=== PATIENT | female | born 1980 | race American Indian/Alaskan Native ===

== ENCOUNTER 2019-09-29 22:43 | Inpatient (IN) | payer OTHER ==
[2019-09-29] MEDS ORDERED: ASPIRIN 325 MG TAB PO ONE (23:53)
[2019-09-30 00:20] LABS: Basophils % (Auto) 0.4 % (0.0-1.8); Eosinophils % (Auto) 0.8 % (0.0-4.3); Hematocrit 26.8 % (30.3-42.9); Hemoglobin 8.2 gm/dl (10.1-14.3); Lymphocytes % (Auto) 33.8 % (13.4-35.0); Mean Corpuscular HGB Conc 30 % (30-34); Monocytes # (Auto) 0.5 K/mm3 (0.0-0.8); Monocytes % (Auto) 7.8 % (0.0-7.3); Platelet Count 347 K/mm3 (140-440); Red Blood Count 4.05 M/mm3 (3.65-5.03); Red Cell Distribution Width 17.9 % (13.2-15.2)
[2019-09-30 00:35] LABS: Mean Corpuscular Volume 66 fl (79-97)
[2019-09-30 00:37] LABS: BUN/Creatinine Ratio 18; Blood Urea Nitrogen 16 mg/dL (7-17); Calcium 9.1 mg/dL (8.4-10.2); Hemolysis Index 0
--- NOTE | 2019-09-30 03:21 | XRay Report ---
CHEST 1 VIEW 2:56 AM INDICATION / CLINICAL INFORMATION: Chest and neck pain for one day. COMPARISON: None available. FINDINGS: SUPPORT DEVICES: None. HEART / MEDIASTINUM: The heart size and pulmonary vasculature are normal. The aorta is normal in evelina jean. LUNGS / PLEURA: No significant pulmonary or pleural abnormality. Incidental note is made of an azygos fissure. No pneumothorax. ADDITIONAL FINDINGS: No significant additional findings. IMPRESSION: No acute findings. Signer Name: Srinivasan Moore MD Signed: 09/30/2019 3:16 AM Workstation Name: [id number]
--- NOTE | 2019-09-30 06:09 | Emergency Department Report ---
ED Chest Pain HPI - General Chief Complaint: Chest Pain Stated Complaint: LEFT SIDE PAIN AND NUMBNESS,CHEST PAIN Time Seen by Provider: 09/30/19 06:07 Source: patient Mode of arrival: Ambulatory Limitations: No Limitations - History of Present Illness Initial Comments: This is a 39-year-old female who states he has never been to the emergency department or physician for headache or chest pain in the past.She has no history of hypertension. Yesterday at about 9 she developed chest pain which was dull and nonradiating. It involve the left anterior chest. It was not pleuritic. He does not complain of shortness of breath. She denies cough. She denies any focal neurological change. She states that her chief complaint was actually headache and left-sided neck pain. Patient denies any ongoing medical problems history of hospitalization. MD Complaint: chest pain -: Gradual, days(s) (yesterday morning) Onset: during rest Pain Location: left chest Pain Radiation: none Severity scale (0 -10): 5 Quality: dull Consistency: intermittent Improves With: nothing Worsens With: nothing re: nausea Other Symptoms: denies: cough, fever, syncope Treatments Prior to Arrival: none Aspirin use within the Past 7 Days: (0) No - Related Data Allergies Allergy/AdvReac Type Severity Reaction Status Date / Time No Known Allergies Allergy Unverified 09/29/19 23:53 Heart Score - HEART Score History: Slightly suspicious EKG: Normal Age: < 45 Risk factors: No known risk factors Troponin: < normal limit HEART Score: 0 - Critical Actions Critical Actions: 0-3 pts:0.9-1.7%risk of adverse cardiac event.Candidate for discharge ED Review of Systems ROS: Stated complaint: LEFT SIDE PAIN AND NUMBNESS,CHEST PAIN Other details as noted in HPI Constitutional: denies: chills, fever Eyes: denies: eye pain, eye discharge, vision change ENT: denies: ear pain, throat pain Respiratory: denies: cough, shortness of breath, wheezing Cardiovascular: chest pain. denies: palpitations Endocrine: no symptoms reported Gastrointestinal: nausea. denies: abdominal pain, diarrhea Genitourinary: denies: urgency, dysuria, discharge Musculoskeletal: denies: back pain, joint swelling, arthralgia Skin: denies: rash, lesions Neurological: denies: headache, weakness, paresthesias Psychiatric: denies: anxiety, depression Hematological/Lymphatic: denies: easy bleeding, easy bruising ED Past Medical Hx - Past Medical History Previous Medical History?: No - Surgical History Past Surgical History?: Yes Additional Surgical History: - Social History Smoking Status: Never Smoker Substance Use Type: None ED Physical Exam - General Limitations: No Limitations General appearance: alert, in no apparent distress - Head Head exam: Present: atraumatic, normocephalic - Eye Eye exam: Present: normal appearance. Absent: scleral icterus - ENT ENT exam: Present: mucous membranes moist - Neck Neck exam: Present: normal inspection, tenderness (some tenderness left side of the neck.). Absent: meningismus - Respiratory Respiratory exam: Present: normal lung sounds bilaterally. Absent: respiratory distress - Cardiovascular Cardiovascular Exam: Present: regular rate, normal rhythm. Absent: systolic murmur, diastolic murmur, rubs, gallop - GI/Abdominal GI/Abdominal exam: Present: soft, normal bowel sounds. Absent: distended, tenderness, guarding, rebound - Extremities Exam Extremities exam: Present: normal inspection, full ROM, normal capillary refill. Absent: tenderness, pedal edema, joint swelling, calf tenderness - Back Exam Back exam: Present: normal inspection - Neurological Exam Neurological exam: Present: alert, oriented X3, CN II-XII intact. Absent: motor sensory deficit - Psychiatric Psychiatric exam: Present: normal affect, normal mood - Skin Skin exam: Present: warm, dry, intact, normal color. Absent: rash ED Course Vital Signs 09/29/19 09/30/19 09/30/19 23:37 06:05 07:15 Temperature 97.8 F Pulse Rate 91 H 70 88 Respiratory 18 14 Rate Blood Pressure 147/100 156/106 Blood Pressure 182/90 [Left] O2 Sat by Pulse 100 99 Oximetry 09/30/19 09/30/19 07:51 08:52 Temperature Pulse Rate 71 79 Respiratory 16 Rate Blood Pressure Blood Pressure 149/101 141/91 [Left] O2 Sat by Pulse Oximetry - Reevaluation(s) Reevaluation #1: Patient did not complain of chest pain. She complained of persistent tenderness of the left neck. She did not have meningismus or nuchal rigidity. She seemed to have some muscle spasm of the left trapezius group and neck muscles and some localized tenderness. She was found to be anemic. A cardiac workup was negative. CT of the head was negative. Initial blood pressure was 180/120. She was given labetalol. Blood pressure is improved to 140/90. In consideration of a broader differential diagnosis, I have ordered a d-dimer, CRP, ESR, hepatic panel and a CTA. Discussed with Dr. LYNN and admitted to his service. 09/30/19 09:06 JOSHUA score - Joshua Score Age > 65: (0) No Aspirin use within the Past 7 Days: (0) No 3 or more CAD Risk Factors: (0) No 2 or more Angina events in past 24 hrs: (0) No Known CAD with more than 50% Stenosis: (0) No Elevated Cardiac Markers: (0) No ST Deviation Greater than 0.5mm: (0) No JOSHUA Score: 0 ED Medical Decision Making - Lab Data Result diagrams: 09/29/19 23:54 09/29/19 23:54 Laboratory Results - last 24 hr 09/29/19 09/29/19 09/30/19 23:54 23:54 03:02 WBC 5.8 RBC 4.05 Hgb 8.2 L Hct 26.8 L MCV 66 L MCH 20 L MCHC 30 RDW 17.9 H Plt Count 347 Lymph % (Auto) 33.8 [place] % (Auto) 7.8 H Eos % (Auto) 0.8 Baso % (Auto) 0.4 Lymph # 2.0 [place] # 0.5 Eos # 0.0 Baso # 0.0 Seg Neutrophils % 57.2 Seg Neutrophils # 3.3 Sodium 143 Potassium 4.0 Chloride 105.3 Carbon Dioxide 26 Anion Gap 16 BUN 16 Creatinine 0.9 Estimated GFR > 60 BUN/Creatinine Ratio 18 Glucose 86 Calcium 9.1 Troponin T < 0.010 < 0.010 - EKG Data -: EKG Interpreted by Sc EKG shows normal: sinus rhythm, axis, intervals, QRS complexes, ST-T waves Rate: normal - EKG Data Interpretation: no acute changes - Radiology Data Radiology results: report reviewed (NAF) Chest x-ray and CT of the head no acute process Critical care attestation.: If time is entered above; I have spent that time in minutes in the direct care of this critically ill patient, excluding procedure time. ED Disposition Clinical Impression: Uncontrolled hypertension Cephalalgia Qualifiers: Headache type: unspecified Headache chronicity pattern: acute headache Intractability: not intractable Qualified Code(s): R51 - Headache Chest pain Qualifiers: Chest pain type: unspecified Qualified Code(s): R07.9 - Chest pain, unspecified Anemia Qualifiers: Anemia type: iron deficiency Iron deficiency anemia type: unspecified iron deficiency Qualified Code(s): D50.9 - Iron deficiency anemia, unspecified Disposition: 09 OP ADMIT IP TO THIS HOSP Is pt being admited?: Yes Does the pt Need Aspirin: Yes Condition: Stable Instructions: Hypertension (ED), Chest Pain (ED) Time of Disposition: 09:10
[2019-09-30] MEDS ORDERED: MORPHINE 2 MG/1 ML INJ IV ONE (06:27)
[2019-09-30] MEDS ORDERED: ONDANSETRON 4 MG/2 ML INJ IV ONE ×2 (06:27→09:11)
--- NOTE | 2019-09-30 07:03 | Cat Scan Report ---
CT HEAD/BRAIN WO CON INDICATION / CLINICAL INFORMATION: Headache with nausea and dizziness. TECHNIQUE: All CT scans at this location are performed using CT dose reduction for ALARA by means of automated e xposure control. COMPARISON: None available. FINDINGS: The ventricular system is normal in size and configuration. There are mild patchy small vessel ischem ic changes in the periventricular white matter bilaterally. No focal lesion or mass effect is seen. T here is no evidence of intracranial hemorrhage or major vessel occlusion. The calvarium is intact. The visualized paranasal sinuses and mastoid air cells are clear. IMPRESSION: No acute abnormality. Signer Name: Srinivasan Moore MD Signed: 09/30/2019 6:58 AM Workstation Name: [id number]
[2019-09-30] MEDS ORDERED: diphenhydrAMINE 50 MG/ML VIAL ONE (07:23)
[2019-09-30] MEDS ORDERED: diphenhydrAMINE 50 MG/ML VIAL IV ONE (07:38)
[2019-09-30] MEDS ORDERED: HYDROmorphone 1 MG/1 ML INJ IV ONE (09:11)
[2019-09-30] MEDS ORDERED: MORPHINE 2 MG/1 ML INJ IV PRN (09:15)
[2019-09-30] MEDS ORDERED: ALBUTEROL 2.5 MG/3 ML NEBU IH PRN (09:15)
[2019-09-30] MEDS ORDERED: NALOXONE 0.4 MG/1 ML INJ IV PRN (09:15)
[2019-09-30] MEDS ORDERED: ACETAMINOPHEN 325 MG TAB PO PRN (09:15)
[2019-09-30] MEDS ORDERED: NITROGLYCERIN 0.4 MG TAB SUBL SL PRN (09:15)
[2019-09-30] MEDS ORDERED: SUMAtriptan SUCCINATE 25 MG TAB PO PRN (09:19)
--- NOTE | 2019-09-30 09:27 | History and Physical Report ---
History of Present Illness Date of examination: 09/30/19 Date of admission: 09/30/19 Chief complaint: CHEST PAIN, NAUSEA WITH VOMITING, HEADAHCE History of present illness: Patient is a 39-year-old female with past medical history of x4 no other medical condition who presents to the ED with complaints of pressure-like chest pain that started suddenly 2 days prior to presentation nonradiating no aggravating or alleviating factor followed by headache that started on the day before ED presentation rated 6/10 in intensity with associated photophobia phonophobia and left sided neck tenderness. She also reports paresthesia to the left fingertips. Shortly after that she began to have nausea vomiting with no diarrhea and no abdominal discomfort. She reports multiple episodes of vomiting nonbloody nonbilious. She denies prior history of the same. She denies any drug use. During my evaluation patient continues to have nausea with vomiting and appears uncomfortable she denies any fever or syncopal episode. Past History Past Medical History: other Past Surgical History: (X4) Social history: full code. denies: smoking, alcohol abuse, prescription drug abuse, IV drug use Family history: no significant family history Medications and Allergies Allergies Allergy/AdvReac Type Severity Reaction Status Date / Time morphine Allergy Hives Verified 09/30/19 09:44 Home Medications Medication Instructions Recorded Confirmed Last Taken Type No Known Home Medications [No 09/30/19 09/30/19 Unknown History Reported Home Medications] Review of Systems All systems: negative Cardiovascular: chest pain Gastrointestinal: nausea, vomiting Neurological: parathesias, numbness, tingling, headaches Exam - Physical Exam Narrative exam: VITAL SIGNS: Reviewed. GENERAL: The patient appears normally developed, ill-appearing. Uncomfortable appearing. Vital signs as documented. HEAD: No signs of head trauma. EYES: Pupils are equal. Extraocular motions intact. EARS: Hearing grossly intact. MOUTH: Oropharynx is normal. NECK: No adenopathy, no JVD. CHEST: Chest with clear breath sounds bilaterally. No wheezes, rales, or rhonchi. CARDIAC: Regular rate and rhythm. S1 and S2, without murmurs, gallops, or rubs. VASCULAR: No Edema. Peripheral pulses normal and equal in all extremities. ABDOMEN: Soft, non tender and non distended. No rebound or guarding, and no masses palpated. Bowel Sounds normal. MUSCULOSKELETAL: Good range of motion of all major joints. Extremities without clubbing, cyanosis or edema. NEUROLOGIC EXAM: Alert and oriented x 3 No focal sensory or strength deficits. Speech normal. Follows commands. PSYCHIATRIC: Mood normal. SKIN: detial exam as documented in skin assessment - Constitutional Vitals: Temp Pulse Resp BP Pulse Ox 97.8 F 79 16 141/91 99 09/29/19 23:37 09/30/19 08:52 09/30/19 08:52 09/30/19 08:52 09/30/19 06:05 Results - Labs CBC & Chem 7: 09/30/19 08:58 09/30/19 08:58 Labs: Laboratory Last Values WBC 5.8 K/mm3 (4.5-11.0) 09/29/19 23:54 RBC 4.05 M/mm3 (3.65-5.03) 09/29/19 23:54 Hgb 8.2 gm/dl (10.1-14.3) L 09/29/19 23:54 Hct 26.8 % (30.3-42.9) L 09/29/19 23:54 MCV 66 fl (79-97) L 09/29/19 23:54 MCH 20 pg (28-32) L 09/29/19 23:54 MCHC 30 % (30-34) 09/29/19 23:54 RDW 17.9 % (13.2-15.2) H 09/29/19 23:54 Plt Count 347 K/mm3 (140-440) 09/29/19 23:54 Lymph % (Auto) 33.8 % (13.4-35.0) 09/29/19 23:54 [place] % (Auto) 7.8 % (0.0-7.3) H 09/29/19 23:54 Eos % (Auto) 0.8 % (0.0-4.3) 09/29/19 23:54 Baso % (Auto) 0.4 % (0.0-1.8) 09/29/19 23:54 Lymph # 2.0 K/mm3 (1.2-5.4) 09/29/19 23:54 [place] # 0.5 K/mm3 (0.0-0.8) 09/29/19 23:54 Eos # 0.0 K/mm3 (0.0-0.4) 09/29/19 23:54 Baso # 0.0 K/mm3 (0.0-0.1) 09/29/19 23:54 Seg Neutrophils % 57.2 % (40.0-70.0) 09/29/19 23:54 Seg Neutrophils # 3.3 K/mm3 (1.8-7.7) 09/29/19 23:54 Sodium 143 mmol/L (137-145) 09/29/19 23:54 Potassium 4.0 mmol/L (3.6-5.0) 09/29/19 23:54 Chloride 105.3 mmol/L (98-107) 09/29/19 23:54 Carbon Dioxide 26 mmol/L (22-30) 09/29/19 23:54 Anion Gap 16 mmol/L 09/29/19 23:54 BUN 16 mg/dL (7-17) 09/29/19 23:54 Creatinine 0.9 mg/dL (0.7-1.2) 09/29/19 23:54 Estimated GFR > 60 ml/min 09/29/19 23:54 BUN/Creatinine Ratio 18 % 09/29/19 23:54 Glucose 86 mg/dL (65-100) 09/29/19 23:54 Calcium 9.1 mg/dL (8.4-10.2) 09/29/19 23:54 Troponin T < 0.010 ng/mL (0.00-0.029) 09/30/19 03:02 HCG, Qual Negative (Negative) 09/29/19 23:54 Assessment and Plan Assessment and plan: Patient is a 39-year-old female with past medical history of x4 no other medical condition who presents to the ED with complaints of pressure-like chest pain that started suddenly 2 days prior to presentation nonradiating no a ggravating or alleviating factor followed by headache that started on the day before ED presentation rated 6/10 in intensity with associated photophobia phonophobia and left sided neck tenderness. She also reports paresthesia to the left fingertips. Shortly after that she began to have nausea vomiting with no diarrhea and no abdominal discomfort. She reports multiple episodes of vomiting nonbloody nonbilious. She denies prior history of the same. She denies any drug use. During my evaluation patient continues to have nausea with vomiting and appears uncomfortable she denies any fever or syncopal episode. Imaging studies Chest x-ray, CTA head and neck, CTA neck: All negative with no acute pathology noted Atypical Chest pain x 2 days- pressure sensation, sudden onset, at rest Severe Frontal Headache with Blurry vision 24 hrs after the onset of chest pain Left sided neck pain and stillness associated with left upper ext parasthesia along with the headache Photo/Phonophobia Hypertensive Urgency in ED with systolic >180 Persistent Nausea and vomiting associated with the headache x4 No family or personal hx of CAD No Tobacco use Sparing use of ETOH PLAN Admit for management of possible Migraine headache Timing and Nature of Chest pain, is a little concerning, will get Cardiology eval and Echo Nitro, ASA, Statin, HCTZ, Verapamil, (Sumatriptonphan, Zofran and Morphin PRN) UDS, Lipid panel, TSH, Troponin and CPk/MB levels Neurochecks Follow pending radiology studies DVT/GI prophy Anticipate discharge in am Plan discussed with patient. Advance Directives: Yes Plan of care discussed with patient/family: Yes
[2019-09-30 09:55] LABS: INR 0.99 (0.87-1.13)
[2019-09-30 09:56] LABS: Partial Thromboplastin Time 26.7 Sec. (24.2-36.6)
[2019-09-30 10:01] LABS: Alanine Aminotransferase 9 units/L (7-56); Albumin 4.4 g/dL (3.9-5)
[2019-09-30 10:04] LABS: Basophils % (Auto) 0.9 % (0.0-1.8); Eosinophils # (Auto) 0.1 K/mm3 (0.0-0.4); Eosinophils % (Auto) 1.6 % (0.0-4.3); Hematocrit 29.4 % (30.3-42.9); Hemoglobin 8.9 gm/dl (10.1-14.3); Lymphocytes # (Auto) 1.9 K/mm3 (1.2-5.4); Lymphocytes % (Auto) 39.9 % (13.4-35.0); Mean Corpuscular HGB Conc 30 % (30-34); Monocytes # (Auto) 0.2 K/mm3 (0.0-0.8); Monocytes % (Auto) 4.3 % (0.0-7.3); Platelet Count 380 K/mm3 (140-440); Red Blood Count 4.52 M/mm3 (3.65-5.03); Red Cell Distribution Width 17.4 % (13.2-15.2)
[2019-09-30 10:07] LABS: Bilirubin,Direct < 0.2 mg/dL (0-0.2); Mean Corpuscular Volume 65 fl (79-97)
[2019-09-30 10:17] LABS: BUN/Creatinine Ratio 16; Blood Urea Nitrogen 13 mg/dL (7-17); Calcium 9.2 mg/dL (8.4-10.2); Chol/HDL Ratio 2.81 %; HDL Cholesterol 76 mg/dL (40-59); Hemolysis Index 10; LDL Cholesterol,Direct 140 mg/dL (50-130)
[2019-09-30] MEDS: hydroCHLOROthiazide 25 MG TAB PO SCH (10:35)
[2019-09-30] MEDS: FAMOTIDINE 20 MG/2 ML INJ IV SCH ×2 (10:35→21:55)
[2019-09-30] MEDS: CYCLOBENZAPRINE 10 MG TAB PO PRN (10:36)
[2019-09-30] MEDS ORDERED: METOCLOPRAMIDE 10 MG/2 ML INJ IV ONE (11:07)
--- NOTE | 2019-09-30 11:13 | Cat Scan Report ---
CT angio head INDICATION / CLINICAL INFORMATION: 39 years Female; head and neck pain, HTN. TECHNIQUE: Thin cut axial images obtained through the head during IV bolus contrast administration. S agittal, coronal, and 3 plane MIP reconstructions performed by the technologist. NASCET type criteria used evaluate stenoses. Automated exposure control utilized for radiation reduction purposes. COMPARISON: None available. FINDINGS: INTERNAL CAROTID ARTERIES: No significant narrowing appreciated. VERTEBROBASILAR SYSTEM: No significant narrowing appreciated. DISTAL BRANCHES: Distal branches of the anterior, middle, and posterior cerebral arteries are fairly symmetric in appearance and number. ANEURYSM: None identified. ADDITIONAL FINDINGS: Remainder of the surrounding soft tissues are grossly normal. IMPRESSION: No significant narrowing appreciated on this CTA of the head. Signer Name: Richmond Benavidez MD, III Signed: 09/30/2019 11:09 AM Workstation Name: [id number]
[2019-09-30 11:17] LABS: Erythrocyte Sedimentation Rate 46 mm/Hr (0-20)
--- NOTE | 2019-09-30 11:24 | Cat Scan Report ---
CT angio neck INDICATION / CLINICAL INFORMATION: 39 years Female; head and neck pain, HTN. TECHNIQUE: Thin cut axial images obtained through the head during IV bolus contrast administration. S agittal, coronal, and 3 plane MIP reconstructions performed by the technologist. NASCET type criteria used evaluate stenoses. All CT scans at this location are performed using CT dose reduction for ALAR A by means of automated exposure control. COMPARISON: None available. FINDINGS: ARCH: Normal aortic arch branching suggested. CAROTID ARTERIES: The visualized common and internal carotid arteries are widely patent. VERTEBRAL ARTERIES: Codominant vertebral system seen. No significant stenosis appreciated. Note, ther e is a very small segment of the proximal left vertebral artery, just distal to its origin, which is not well visualized because of streak artifact from dense contrast in the adjacent venous structures. ADDITIONAL FINDINGS: Remainder of the surrounding soft tissues are grossly normal. IMPRESSION: No significant stenosis appreciated on this CTA of the neck. Signer Name: Richmond Benavidez MD, III Signed: 09/30/2019 11:20 AM Workstation Name: [id number]
[2019-09-30] MEDS: D5W/0.9% NACL 1,000 ML IV SCH ×2 (14:08→22:25)
[2019-09-30] MEDS: ONDANSETRON 4 MG/2 ML INJ IV PRN ×3 (14:16→22:27)
[2019-09-30] MEDS: HYDROmorphone 1 MG/1 ML INJ IV PRN ×3 (14:17→21:56)
--- NOTE | 2019-09-30 14:30 | XRay Report ---
ABDOMEN 1 VIEW(S) INDICATION / CLINICAL INFORMATION: nausea and vomiting. COMPARISON: None available. FINDINGS: TUBES / LINES: None. BOWEL GAS PATTERN: No significant abnormality. FREE AIR / EXTRALUMINAL GAS: None seen. ADDITIONAL FINDINGS: Contrast is noted within the bladder and both renal collecting systems. IMPRESSION: 1. No significant abnormality. Signer Name: Rubén Angeles MD Signed: 09/30/2019 2:26 PM Workstation Name: [id number]
[2019-09-30] MEDS: VERAPAMIL 80 MG TAB PO SCH ×2 (14:45→22:30)
[2019-09-30 15:20] LABS: Creatine Kinase MB < 1.0 ng/mL (0.0-4.0)
[2019-09-30] MEDS ORDERED: ENOXAPARIN 40 MG/0.4 ML INJ SUB-Q NR (17:03)
[2019-09-30] MEDS: diphenhydrAMINE 25 MG CAP PO PRN ×2 (17:24→23:52)
--- NOTE | 2019-09-30 17:37 | Progress Note ---
Subjective Date of service: 09/30/19 Interval history: review of the CT of head is normal and the CTA of brain normal to my review remainder of work up pending ie ECHO Objective - Vital Sign Vital Signs - 12hr 09/30/19 09/30/19 09/30/19 06:05 07:15 07:51 Temperature Pulse Rate 70 88 71 Respiratory 14 Rate Blood Pressure 156/106 Blood Pressure 182/90 149/101 [Left] O2 Sat by Pulse 99 Oximetry 09/30/19 09/30/19 09/30/19 08:52 11:16 13:29 Temperature 98.3 F Pulse Rate 79 67 Respiratory 16 20 Rate Blood Pressure 144/90 Blood Pressure 141/91 163/107 [Left] O2 Sat by Pulse 98 99 Oximetry 09/30/19 09/30/19 14:33 14:45 Temperature Pulse Rate 67 Respiratory Rate Blood Pressure 140/90 Blood Pressure [Left] O2 Sat by Pulse 98 Oximetry - Laboratory Findings CBC and BMP: 09/30/19 08:58 09/30/19 08:58 Abnormal Lab Findings: Abnormal Labs 09/29/19 09/30/19 09/30/19 23:54 08:58 08:58 Hgb 8.2 L 8.9 L Hct 26.8 L 29.4 L MCV 66 L 65 L MCH 20 L 20 L RDW 17.9 H 17.4 H Lymph % (Auto) 39.9 H [place] % (Auto) 7.8 H D-Dimer 244.14 H Carbon Dioxide Cholesterol LDL Cholesterol Direct HDL Cholesterol 09/30/19 08:58 Hgb Hct MCV MCH RDW Lymph % (Auto) [place] % (Auto) D-Dimer Carbon Dioxide 18 L D Cholesterol 214 H LDL Cholesterol Direct 140 H HDL Cholesterol 76 H
[2019-09-30 18:21] LABS: Creatine Kinase MB < 1.0 ng/mL (0.0-4.0)
[2019-10-01] MEDS ORDERED: hydrALAZINE 20 MG/1 ML INJ IV PRN (02:00)
[2019-10-01] MEDS: PROMETHAZINE 12.5 MG/10 ML ORAL LIQD PO SCH ×2 (02:03→08:46)
[2019-10-01] MEDS: HYDROmorphone 1 MG/1 ML INJ IV PRN ×4 (03:04→21:39)
[2019-10-01] MEDS: VERAPAMIL 80 MG TAB PO SCH ×3 (05:33→21:40)
--- NOTE | 2019-10-01 08:16 | Progress Note ---
Subjective Date of service: 10/01/19 Interval history: neuro exam is normal suspect STEVE and HTN cuase of problem full note dictated Objective - Vital Sign Vital Signs - 12hr 09/30/19 09/30/19 10/01/19 22:30 22:56 00:02 Temperature 97.7 F Pulse Rate 104 H 74 68 Respiratory 18 Rate Blood Pressure 185/119 171/89 Blood Pressure 167/110 [Left] O2 Sat by Pulse 99 Oximetry 10/01/19 10/01/19 10/01/19 00:50 01:32 04:10 Temperature 97.4 F L 97.5 F L Pulse Rate 68 89 74 Respiratory 18 20 Rate Blood Pressure 167/110 171/92 Blood Pressure 169/104 [Left] O2 Sat by Pulse 100 100 Oximetry 10/01/19 05:33 Temperature Pulse Rate 95 H Respiratory Rate Blood Pressure 151/101 Blood Pressure [Left] O2 Sat by Pulse Oximetry - Laboratory Findings CBC and BMP: 09/30/19 08:58 09/30/19 08:58 Abnormal Lab Findings: Abnormal Labs 09/29/19 09/30/19 09/30/19 23:54 08:58 08:58 Hgb 8.2 L 8.9 L Hct 26.8 L 29.4 L MCV 66 L 65 L MCH 20 L 20 L RDW 17.9 H 17.4 H Lymph % (Auto) 39.9 H [place] % (Auto) 7.8 H D-Dimer 244.14 H Carbon Dioxide Cholesterol LDL Cholesterol Direct HDL Cholesterol 09/30/19 08:58 Hgb Hct MCV MCH RDW Lymph % (Auto) [place] % (Auto) D-Dimer Carbon Dioxide 18 L D Cholesterol 214 H LDL Cholesterol Direct 140 H HDL Cholesterol 76 H
--- NOTE | 2019-10-01 08:28 | Consultation ---
HISTORY OF PRESENT ILLNESS: A 39-year-old black female who presents to [facility] with prolonged chest pain, dizziness, vertigo, left and right arm weakness. On presentation, she had a MCV, which was 66 and 65 and a low hematocrit of 26. D-dimer test was high at 244. The patient complained of pain in her arms and legs. I reviewed her CT scan of the head or CTA, it is normal. ALLERGIES: THE PATIENT HAS ALLERGIES TO MORPHINE. PHYSICAL EXAMINATION: VITAL SIGNS: On current evaluation, her vital signs, blood pressure is 167/110. NEUROLOGIC: Cranial nerves II through XII are intact. She has a slight ptosis of the left pupil. It is extremely minimal. She has equal clinical informatics director. Normal tone. No asymmetrical movements. Cranial nerves 2-12 are intact. No tremors or asterixis. PSYCHIATRIC: Normal affect. Normal behavior. Memory is good. There are no tremors. No seizure activity. IMPRESSION: Neurological symptoms associated as described above. I suspect this is due to iron deficiency anemia. I also think there may be a component of hypertension as well. The patient has elevated cholesterol and HDL. Recommendations are iron supplementation. Further review of anemia such as I would obviously check the iron levels, ferritin, and check for possibility of some bleeding, but generally this is due to factors involving the patient's periods, controlled hypertension is noted. JOB# [id number] SANDHYA/NTS
[2019-10-01] MEDS ORDERED: cloNIDine TTS 0.1 MG/24 HR PATCH TD SCH (10:00)
--- NOTE | 2019-10-01 11:05 | Gastroenterology Consultation ---
<JOSUÉ SCHWAB - Last Filed: 10/01/19 11:26> History of Present Illness - Reason for Consult Consult date: 10/01/19 N/V Requesting physician: CHRIS LYNN - History of Present Illness Patient is a 39 y/o female with PMH of x 4, headaches, and chronic anemia who presented to ED with c/o atypical CP and headache with associated ph otophobia, phonophobia, left sided neck tenderness, parestesia to left fingertips, and N/V (nonbloody emesis) to which GI has been consulted. Upon admission, she was found to be hypertensive with head CT/neck CTA negative. Neurology following. This morning patient was resting in bed w/o acute distress. Reports continued headache and vomiting x 2 episodes this am. States CP is now resolved. Denies fever, SOB, wt loss, abd pain, hematemesis, melena, diarrhea, constipation, or hematochezia. Has had nausea for the past few months w/o vomiting. Symptoms not correlated with PO intake. Has a hx of chronic anemia with having to take iron supplements in the past but no hx of GI bleeding or PUD. Admits to heavy NSAID use with taking Goody's powder on average of twice daily for headaches or menstrual symptoms (+ menorrhagia). No prior EGD or colonoscopy. Past History Past Medical History: anemia, other (headaches) Past Surgical History: (X4) Social history: full code. denies: smoking, alcohol abuse, prescription drug abuse, IV drug use Family history: no significant family history Medications and Allergies Allergies Allergy/AdvReac Type Severity Reaction Status Date / Time morphine Allergy Hives Verified 09/30/19 09:44 Home Medications Medication Instructions Recorded Confirmed Last Taken Type No Known Home Medications [No 09/30/19 09/30/19 Unknown History Reported Home Medications] Active Meds: Active Medications Acetaminophen (Tylenol) 650 mg PO Q4H PRN PRN Reason: Pain MILD(1-3)/Fever >100.5/CARVAJAL Albuterol (Proventil) 2.5 mg IH Q3HRT PRN PRN Reason: Shortness Of Breath Aspirin (Baby Aspirin) 81 mg PO QDAY [facility] Atorvastatin Calcium (Lipitor) 20 mg PO QHS [facility] Last Admin: 09/30/19 21:56 Dose: 20 mg Documented by: Clonidine HCl (Catapres-Tts Patch) 0.1 mg TD Mo@1000 [facility] Cyclobenzaprine HCl (Flexeril) 5 mg PO Q8H PRN PRN Reason: Muscle Spasm Last Admin: 09/30/19 10:36 Dose: 5 mg Documented by: Diphenhydramine HCl (Benadryl) 25 mg PO Q6H PRN PRN Reason: Itching Last Admin: 09/30/19 23:52 Dose: 25 mg Documented by: Famotidine (Pepcid) 20 mg IV BID [facility] Last Admin: 09/30/19 21:55 Dose: 20 mg Documented by: Hydralazine HCl (Apresoline) 10 mg IV Q4H PRN PRN Reason: hypertension Last Admin: 10/01/19 00:50 Dose: 10 mg Documented by: Hydrochlorothiazide (Hctz) 25 mg PO QDAY [facility] Last Admin: 09/30/19 10:35 Dose: 25 mg Documented by: Hydromorphone HCl (Dilaudid) 0.5 mg IV Q3H PRN PRN Reason: Pain , Severe (7-10) Last Admin: 10/01/19 08:46 Dose: 0.5 mg Documented by: Dextrose/Sodium Chloride (D5ns) 1,000 mls @ 42 mls/hr IV DIRECT [facility] Last Admin: 09/30/19 22:25 Dose: 100 mls/hr Documented by: Naloxone HCl (Naloxone) 0.1 mg IV Q2MIN PRN PRN Reason: Res Rate </= 8 or 02 SAT < 92% Nitroglycerin (Nitrostat) 0.4 mg SL Q5M PRN PRN Reason: Chest Pain Ondansetron HCl (Zofran) 4 mg IV Q4H PRN PRN Reason: Nausea And Vomiting Last Admin: 09/30/19 22:27 Dose: 4 mg Documented by: Sodium Chloride (Sodium Chloride Flush Syringe 10 Ml) 10 ml IV BID [facility] Last Admin: 09/30/19 21:58 Dose: 10 ml Documented by: Sodium Chloride (Sodium Chloride Flush Syringe 10 Ml) 10 ml IV PRN PRN PRN Reason: LINE FLUSH Sodium Chloride (Sodium Chloride Flush Syringe 10 Ml) 10 ml IV PRN PRN PRN Reason: LINE FLUSH Sumatriptan Succinate (Imitrex) 25 mg PO Q2H PRN PRN Reason: Headache Verapamil HCl (Calan) 40 mg PO Q8HR [facility] Last Admin: 10/01/19 05:33 Dose: 40 mg Documented by: medications reviewed/updated as required Review of Systems - Review of Systems All systems: negative Constitutional: other (headache) Gastrointestinal: nausea, vomiting Exam - Constitutional Vital Signs: Temp Pulse Resp BP Pulse Ox 97.5 F L 95 H 20 151/101 100 10/01/19 04:10 10/01/19 05:33 10/01/19 04:10 10/01/19 05:33 10/01/19 04:10 General appearance: no acute distress - EENT Eyes: PERRL, EOM intact ENT: hearing intact - Respiratory Respiratory effort: normal - Cardiovascular Rhythm: regular - Gastrointestinal General gastrointestinal: Present: soft, non-tender, non-distended, normal bowel sounds - Integumentary Integumentary: Present: warm, dry - Neurologic Neurological: alert and oriented x3 - Labs CBC & Chem 7: 10/01/19 10:47 09/30/19 08:58 Lab Results: Laboratory Results - last 24 hr 09/30/19 09/30/19 09/30/19 08:58 14:36 14:36 ESR 46 Total Creatine Kinase 86 CK-MB (CK-2) < 1.0 CK-MB (CK-2) Rel Index 1.1 Troponin T < 0.010 09/30/19 17:10 ESR Total Creatine Kinase 86 CK-MB (CK-2) < 1.0 CK-MB (CK-2) Rel Index 1.1 Troponin T Assessment and Plan 1.N/V 2.atypical CP-resolved; troponin negative/echo EF 50-55% 3.chronic anemia- +menorrhagia -afebrile -WBC WNL -INR and plt WNL -H/H 8.8/28.4-stable; no active signs of bleeding -LFTs WNL -etiology unclear- possibly related to headache vs PUD (+heavy NSAID use) vs GB vs other -will order abd U/S and schedule for EGD today for further evaluation to r/o GI pathology -Keep NPO -start on PPI -continue supportive care -recommend patient be seen by [facility] for menorrhagia which could likely be contributing to chronic anemia; consider colonoscopy as outpatient for further workup of anemia if recommended per [facility] -will follow <JIN MARIE R - Last Filed: 10/01/19 15:05> Medications and Allergies Active Meds: Active Medications Acetaminophen (Tylenol) 650 mg PO Q4H PRN PRN Reason: Pain MILD(1-3)/Fever >100.5/CARVAJAL Albuterol (Proventil) 2.5 mg IH Q3HRT PRN PRN Reason: Shortness Of Breath Aspirin (Baby Aspirin) 81 mg PO QDAY [facility] Atorvastatin Calcium (Lipitor) 20 mg PO QHS [facility] Last Admin: 09/30/19 21:56 Dose: 20 mg Documented by: Clonidine HCl (Catapres-Tts Patch) 0.1 mg TD Mo@1000 [facility] Last Admin: 10/01/19 12:30 Dose: 0.1 mg Documented by: Cyclobenzaprine HCl (Flexeril) 5 mg PO Q8H PRN PRN Reason: Muscle Spasm Last Admin: 09/30/19 10:36 Dose: 5 mg Documented by: Diphenhydramine HCl (Benadryl) 25 mg PO Q6H PRN PRN Reason: Itching Last Admin: 09/30/19 23:52 Dose: 25 mg Documented by: Hydralazine HCl (Apresoline) 10 mg IV Q4H PRN PRN Reason: hypertension Last Admin: 10/01/19 00:50 Dose: 10 mg Documented by: Hydrochlorothiazide (Hctz) 25 mg PO QDAY [facility] Last Admin: 09/30/19 10:35 Dose: 25 mg Documented by: Hydromorphone HCl (Dilaudid) 0.5 mg IV Q3H PRN PRN Reason: Pain , Severe (7-10) Last Admin: 10/01/19 08:46 Dose: 0.5 mg Documented by: Dextrose/Sodium Chloride (D5ns) 1,000 mls @ 42 mls/hr IV DIRECT [facility] Last Admin: 09/30/19 22:25 Dose: 100 mls/hr Documented by: Sodium Chloride (Nacl 0.9% 1000 Ml) 1,000 mls @ 50 mls/hr IV DIRECT [facility] Stop: 10/02/19 11:59 Last Admin: 10/01/19 13:28 Dose: 50 mls/hr Documented by: Naloxone HCl (Naloxone) 0.1 mg IV Q2MIN PRN PRN Reason: Res Rate </= 8 or 02 SAT < 92% Nitroglycerin (Nitrostat) 0.4 mg SL Q5M PRN PRN Reason: Chest Pain Ondansetron HCl (Zofran) 4 mg IV Q4H PRN PRN Reason: Nausea And Vomiting Last Admin: 10/01/19 12:10 Dose: 4 mg Documented by: Pantoprazole Sodium (Protonix) 40 mg IV QDAY [facility] Last Admin: 10/01/19 12:31 Dose: 40 mg Documented by: Sodium Chloride (Sodium Chloride Flush Syringe 10 Ml) 10 ml IV BID [facility] Last Admin: 10/01/19 12:31 Dose: 10 ml Documented by: Sodium Chloride (Sodium Chloride Flush Syringe 10 Ml) 10 ml IV PRN PRN PRN Reason: LINE FLUSH Sodium Chloride (Sodium Chloride Flush Syringe 10 Ml) 10 ml IV PRN PRN PRN Reason: LINE FLUSH Sumatriptan Succinate (Imitrex) 25 mg PO Q2H PRN PRN Reason: Headache Verapamil HCl (Calan) 40 mg PO Q8HR [facility] Last Admin: 10/01/19 05:33 Dose: 40 mg Documented by: Exam - Constitutional Vital Signs: Temp Pulse Resp BP Pulse Ox 98.6 F 90 12 170/108 99 10/01/19 13:22 10/01/19 13:22 10/01/19 13:22 10/01/19 13:22 10/01/19 13:22 - Labs CBC & Chem 7: 10/01/19 10:47 09/30/19 08:58 Lab Results: Laboratory Results - last 24 hr 09/30/19 09/30/19 09/30/19 14:36 14:36 17:10 WBC RBC Hgb Hct MCV MCH MCHC RDW Plt Count Lymph % (Auto) Bureau % (Auto) Eos % (Auto) Baso % (Auto) Lymph # Bureau # Eos # Baso # Seg Neutrophils % Seg Neutrophils # Total Creatine Kinase 86 86 CK-MB (CK-2) < 1.0 < 1.0 CK-MB (CK-2) Rel Index 1.1 1.1 Troponin T < 0.010 10/01/19 10:47 WBC 4.5 RBC 4.34 Hgb 8.8 L Hct 28.4 L MCV 65 L MCH 20 L MCHC 31 RDW 17.7 H Plt Count 367 Lymph % (Auto) 29.4 Bureau % (Auto) 7.8 H Eos % (Auto) 0.5 Baso % (Auto) 0.3 Lymph # 1.3 Bureau # 0.4 Eos # 0.0 Baso # 0.0 Seg Neutrophils % 62.0 Seg Neutrophils # 2.8 Total Creatine Kinase CK-MB (CK-2) CK-MB (CK-2) Rel Index Troponin T 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 Microcytic anemia, no prior hx, no family hx of SS disease, no other GI symptoms, no weight loss. - EGD to assess N/V, and anemia. If negative, plan as noted.
[2019-10-01 11:08] LABS: Basophils % (Auto) 0.3 % (0.0-1.8); Eosinophils % (Auto) 0.5 % (0.0-4.3); Hematocrit 28.4 % (30.3-42.9); Hemoglobin 8.8 gm/dl (10.1-14.3); Lymphocytes # (Auto) 1.3 K/mm3 (1.2-5.4); Lymphocytes % (Auto) 29.4 % (13.4-35.0); Mean Corpuscular HGB Conc 31 % (30-34); Monocytes # (Auto) 0.4 K/mm3 (0.0-0.8); Monocytes % (Auto) 7.8 % (0.0-7.3); Platelet Count 367 K/mm3 (140-440); Red Blood Count 4.34 M/mm3 (3.65-5.03); Red Cell Distribution Width 17.7 % (13.2-15.2)
[2019-10-01 11:17] LABS: Mean Corpuscular Volume 65 fl (79-97)
[2019-10-01] MEDS: ONDANSETRON 4 MG/2 ML INJ IV PRN ×2 (12:10→21:11)
[2019-10-01] MEDS: FAMOTIDINE 20 MG/2 ML INJ IV SCH (12:11)
[2019-10-01] MEDS: PANTOPRAZOLE 40 MG INJ IV SCH (12:31)
[2019-10-01] MEDS ORDERED: LIDOCAINE MPF (2%) 20 MG/1 ML VIAL 5 ML ONE (13:00)
[2019-10-01] MEDS: SODIUM CHLORIDE 0.9% 1000 ML 1,000 ML IV SCH (13:28)
--- NOTE | 2019-10-01 13:30 | Anesthesia Consultation ---
Anesthesia Consult and Med Hx Date of service: 10/01/19 - Airway Anesthetic Teeth Evaluation: Good, Chipped (upper left back) ROM Head & Neck: Adequate Mental/Hyoid Distance: Adequate Mallampati Class: Class II Intubation Access Assessment: Probably Good - Pre-Operative Health Status ASA Pre-Surgery Classification: ASA2 Proposed Anesthetic Plan: MAC - Central Nervous System Hx Neuromuscular Disorder: Yes (severe headache) - Hematic Hx Anemia: Yes (H/H 8.8/)
--- NOTE | 2019-10-01 13:30 | Anesthesia Day of Surgery ---
Anesthesia Day of Surgery - Day of Surgery Patient Examined: Yes Patient H&P Reviewed: Yes Patient is NPO: Yes
--- NOTE | 2019-10-01 14:43 | Consultation ---
<GARY ROBERSON - Last Filed: 10/01/19 14:35> History of Present Illness Consult date: 10/01/19 Consult reason: chest pain History of present illness: 39-year old female who presents with chest pain, headaches and nausea with vomiting. Noted hypertensive on presentation. Head and neck CT angiogram is negative. Initial labs shows an H&H of 8.9/29. Cycled cardiac enzymes are normal. An ECG is sinus rhythm with LVH. A cardiac consultation has been requested for evaluation of chest pain. Past History Past Medical History: anemia, other (headaches) Past Surgical History: (X4) Social history: full code. denies: smoking, alcohol abuse, prescription drug abuse, IV drug use Family history: no significant family history Medications and Allergies Allergies Allergy/AdvReac Type Severity Reaction Status Date / Time morphine Allergy Hives Verified 09/30/19 09:44 Home Medications Medication Instructions Recorded Confirmed Last Taken Type No Known Home Medications [No 09/30/19 09/30/19 Unknown History Reported Home Medications] Active Meds: Active Medications Acetaminophen (Tylenol) 650 mg PO Q4H PRN PRN Reason: Pain MILD(1-3)/Fever >100.5/CARVAJAL Albuterol (Proventil) 2.5 mg IH Q3HRT PRN PRN Reason: Shortness Of Breath Aspirin (Baby Aspirin) 81 mg PO QDAY [facility] Atorvastatin Calcium (Lipitor) 20 mg PO QHS [facility] Last Admin: 09/30/19 21:56 Dose: 20 mg Documented by: Clonidine HCl (Catapres-Tts Patch) 0.1 mg TD Mo@1000 [facility] Last Admin: 10/01/19 12:30 Dose: 0.1 mg Documented by: Cyclobenzaprine HCl (Flexeril) 5 mg PO Q8H PRN PRN Reason: Muscle Spasm Last Admin: 09/30/19 10:36 Dose: 5 mg Documented by: Diphenhydramine HCl (Benadryl) 25 mg PO Q6H PRN PRN Reason: Itching Last Admin: 09/30/19 23:52 Dose: 25 mg Documented by: Hydralazine HCl (Apresoline) 10 mg IV Q4H PRN PRN Reason: hypertension Last Admin: 10/01/19 00:50 Dose: 10 mg Documented by: Hydrochlorothiazide (Hctz) 25 mg PO QDAY [facility] Last Admin: 09/30/19 10:35 Dose: 25 mg Documented by: Hydromorphone HCl (Dilaudid) 0.5 mg IV Q3H PRN PRN Reason: Pain , Severe (7-10) Last Admin: 10/01/19 08:46 Dose: 0.5 mg Documented by: Dextrose/Sodium Chloride (D5ns) 1,000 mls @ 42 mls/hr IV DIRECT [facility] Last Admin: 09/30/19 22:25 Dose: 100 mls/hr Documented by: Sodium Chloride (Nacl 0.9% 1000 Ml) 1,000 mls @ 50 mls/hr IV DIRECT [facility] Stop: 10/02/19 11:59 Last Admin: 10/01/19 13:28 Dose: 50 mls/hr Documented by: Naloxone HCl (Naloxone) 0.1 mg IV Q2MIN PRN PRN Reason: Res Rate </= 8 or 02 SAT < 92% Nitroglycerin (Nitrostat) 0.4 mg SL Q5M PRN PRN Reason: Chest Pain Ondansetron HCl (Zofran) 4 mg IV Q4H PRN PRN Reason: Nausea And Vomiting Last Admin: 10/01/19 12:10 Dose: 4 mg Documented by: Pantoprazole Sodium (Protonix) 40 mg IV QDAY [facility] Last Admin: 10/01/19 12:31 Dose: 40 mg Documented by: Sodium Chloride (Sodium Chloride Flush Syringe 10 Ml) 10 ml IV BID [facility] Last Admin: 10/01/19 12:31 Dose: 10 ml Documented by: Sodium Chloride (Sodium Chloride Flush Syringe 10 Ml) 10 ml IV PRN PRN PRN Reason: LINE FLUSH Sodium Chloride (Sodium Chloride Flush Syringe 10 Ml) 10 ml IV PRN PRN PRN Reason: LINE FLUSH Sumatriptan Succinate (Imitrex) 25 mg PO Q2H PRN PRN Reason: Headache Verapamil HCl (Calan) 40 mg PO Q8HR [facility] Last Admin: 10/01/19 05:33 Dose: 40 mg Documented by: Physical Examination Vital Signs Temp Pulse Resp BP Pulse Ox 97.8 F 91 H 18 147/100 100 09/29/19 23:37 09/29/19 23:37 09/29/19 23:37 09/29/19 23:37 09/29/19 23:37 General appearance: no acute distress HEENT: Positive: PERRL Neck: Positive: trachea midline Cardiac: Positive: Reg Rate and Rhythm Lungs: Positive: Normal Breath Sounds Neuro: Positive: Grossly Intact Extremities: Absent: edema Results 10/01/19 10:47 09/30/19 08:58 Cardiac Enzymes 09/30/19 09/30/19 Range/Units 14:36 17:10 CK-MB (CK-2) < 1.0 < 1.0 (0.0-4.0) ng/mL CBC 10/01/19 Range/Units 10:47 WBC 4.5 (4.5-11.0) K/mm3 RBC 4.34 (3.65-5.03) M/mm3 Hgb 8.8 L (10.1-14.3) gm/dl Hct 28.4 L (30.3-42.9) % Plt Count 367 (140-440) K/mm3 Lymph # 1.3 (1.2-5.4) K/mm3 [place] # 0.4 (0.0-0.8) K/mm3 Eos # 0.0 (0.0-0.4) K/mm3 Baso # 0.0 (0.0-0.1) K/mm3 Assessment and Plan Atypical chest pain Headaches Anemia Hypertensive An echocardiogram shows a normal left ventricular systolic function. Recommendations: Optimal BP management. Pre-discharge stress thallium test for further cardiac evaluation. <JULIO CESAR PELAYO - Last Filed: 10/02/19 09:37> Medications and Allergies Active Meds: Active Medications Acetaminophen (Tylenol) 650 mg PO Q4H PRN PRN Reason: Pain MILD(1-3)/Fever >100.5/CARVAJAL Albuterol (Proventil) 2.5 mg IH Q3HRT PRN PRN Reason: Shortness Of Breath Aspirin (Baby Aspirin) 81 mg PO QDAY [facility] Last Admin: 10/01/19 18:31 Dose: 81 mg Documented by: Atorvastatin Calcium (Lipitor) 20 mg PO QHS [facility] Last Admin: 10/01/19 21:40 Dose: 20 mg Documented by: Clonidine HCl (Catapres-Tts Patch) 0.1 mg TD Mo@1000 [facility] Last Admin: 10/01/19 12:30 Dose: 0.1 mg Documented by: Cyclobenzaprine HCl (Flexeril) 5 mg PO Q8H PRN PRN Reason: Muscle Spasm Last Admin: 10/02/19 00:49 Dose: 5 mg Documented by: Diphenhydramine HCl (Benadryl) 25 mg PO Q6H PRN PRN Reason: Itching Last Admin: 09/30/19 23:52 Dose: 25 mg Documented by: Hydralazine HCl (Apresoline) 10 mg IV Q4H PRN PRN Reason: hypertension Last Admin: 10/01/19 00:50 Dose: 10 mg Documented by: Hydrochlorothiazide (Hctz) 25 mg PO QDAY [facility] Last Admin: 10/01/19 18:30 Dose: 25 mg Documented by: Hydromorphone HCl (Dilaudid) 0.5 mg IV Q3H PRN PRN Reason: Pain , Severe (7-10) Last Admin: 10/02/19 05:27 Dose: 0.5 mg Documented by: Dextrose/Sodium Chloride (D5ns) 1,000 mls @ 42 mls/hr IV DIRECT [facility] Last Admin: 10/02/19 05:55 Dose: 100 mls/hr Documented by: Sodium Chloride (Nacl 0.9% 1000 Ml) 1,000 mls @ 50 mls/hr IV DIRECT [facility] Stop: 10/02/19 11:59 Last Infusion: 10/02/19 05:50 Dose: Infused Documented by: Naloxone HCl (Naloxone) 0.1 mg IV Q2MIN PRN PRN Reason: Res Rate </= 8 or 02 SAT < 92% Nifedipine (Procardia Xl) 60 mg PO QDAY [facility] Last Admin: 10/01/19 18:32 Dose: 60 mg Documented by: Nitroglycerin (Nitrostat) 0.4 mg SL Q5M PRN PRN Reason: Chest Pain Ondansetron HCl (Zofran) 4 mg IV Q4H PRN PRN Reason: Nausea And Vomiting Last Admin: 10/02/19 05:27 Dose: 4 mg Documented by: Pantoprazole Sodium (Protonix) 40 mg IV QDAY [facility] Last Admin: 10/01/19 12:31 Dose: 40 mg Documented by: Sodium Chloride (Sodium Chloride Flush Syringe 10 Ml) 10 ml IV BID [facility] Last Admin: 10/01/19 21:18 Dose: 10 ml Documented by: Sodium Chloride (Sodium Chloride Flush Syringe 10 Ml) 10 ml IV PRN PRN PRN Reason: LINE FLUSH Sodium Chloride (Sodium Chloride Flush Syringe 10 Ml) 10 ml IV PRN PRN PRN Reason: LINE FLUSH Sumatriptan Succinate (Imitrex) 25 mg PO Q2H PRN PRN Reason: Headache Verapamil HCl (Calan) 40 mg PO Q8HR [facility] Last Admin: 10/02/19 05:25 Dose: 40 mg Documented by: Physical Examination Vital Signs Temp Pulse Resp BP Pulse Ox 97.8 F 91 H 18 147/100 100 09/29/19 23:37 09/29/19 23:37 09/29/19 23:37 09/29/19 23:37 09/29/19 23:37 Results 10/01/19 10:47 09/30/19 08:58 CBC 10/01/19 Range/Units 10:47 WBC 4.5 (4.5-11.0) K/mm3 RBC 4.34 (3.65-5.03) M/mm3 Hgb 8.8 L (10.1-14.3) gm/dl Hct 28.4 L (30.3-42.9) % Plt Count 367 (140-440) K/mm3 Lymph # 1.3 (1.2-5.4) K/mm3 [place] # 0.4 (0.0-0.8) K/mm3 Eos # 0.0 (0.0-0.4) K/mm3 Baso # 0.0 (0.0-0.1) K/mm3 Assessment and Plan Has seen and evaluated the patient and agree with the assessment and plan. Patient is presenting with atypical chest pain. Patient has an echocardiogram that shows normal left ventricular systolic function. We will plan for nuclear stress test for further evaluation.
[2019-10-01] MEDS ORDERED: fentaNYL 100 MCG/2 ML INJ ONE (15:01)
[2019-10-01] MEDS ORDERED: PROPOFOL 200 MG/20 ML VIAL IV ONE (15:01)
--- NOTE | 2019-10-01 15:22 | Post Operative Note ---
Pre-op diagnosis: N/V, anemia Post-op diagnosis: other (Mild antral gastritis) Findings: 1. Mild antral erythema, patchy 2. Otherwise normal EGD Procedure: EGD Anesthesia: MAC Surgeon: JIN MARIE Estimated blood loss: none Pathology: none Condition: stable Disposition: floor (Minimize Goody's, check H pylori Ab, and f/u as outpatient with GI in 1 month to monitor anemia)
--- NOTE | 2019-10-01 15:28 | Progress Note ---
Assessment and Plan Assessment and plan: Patient is a 39-year-old female with past medical history of x4 no other medical condition who presents to the ED with complaints of pressure-like chest pain that started suddenly 2 days prior to presentation nonradiating no aggravating or alleviating factor followed by headache that started on the day before ED presentation rated 6/10 in intensity with associated photophobia phonophobia and left sided neck tenderness. She also reports paresthesia to the left fingertips. Shortly after that she began to have nausea vomiting with no diarrhea and no abdominal discomfort. She reports multiple episodes of vomiting nonbloody nonbilious. She denies prior history of the same. She denies any drug use. During my evaluation patient continues to have nausea with vomiting and appears uncomfortable she denies any fever or syncopal episode. Imaging studies Chest x-ray, CTA head and neck, CTA neck: All negative with no acute pathology noted Atypical Chest pain x 2 days- pressure sensation, sudden onset, at rest Severe Frontal Headache with Blurry vision 24 hrs after the onset of chest pain Left sided neck pain and stillness associated with left upper ext parasthesia along with the headache Photo/Phonophobia Hypertensive Urgency in ED with systolic >180 Persistent Nausea and vomiting associated with the headache x4 No family or personal hx of CAD No Tobacco use Sparing use of ETOH PLAN adjust medications for sjustiy streess in am cation call cristopher GI consulted due to persistent anemia Awaiting cardiology input Timing and Nature of Chest pain, is a little concerning, will get Cardiology eval and Echo Nitro, ASA, Statin, HCTZ, Verapamil, (Sumatriptonphan, Zofran and Morphin PRN) UDS, Lipid panel, TSH, Troponin and CPk/MB levels Neurochecks Follow pending radiology studies DVT/GI prophy Anticipate discharge in am Plan discussed with patient. Disposition Plan: ericka Total Time Spent with Patient (Minutes): jerman on ckd sthanks fo rno History Interval history: Patient seen and examined., this am still. Still ad severe headache Hospitalist Physical - Physical exam Narrative exam: VITAL SIGNS: Reviewed. GENERAL: The patient appears normally developed, ill-appearing. Uncomfortable appearing. Vital signs as documented. HEAD: No signs of head trauma. EYES: Pupils are equal. Extraocular motions intact. EARS: Hearing grossly intact. MOUTH: Oropharynx is normal. NECK: No adenopathy, no JVD. CHEST: Chest with clear breath sounds bilaterally. No wheezes, rales, or rhonchi. CARDIAC: Regular rate and rhythm. S1 and S2, without murmurs, gallops, or rubs. VASCULAR: No Edema. Peripheral pulses normal and equal in all extremities. ABDOMEN: Soft, non tender and non distended. No rebound or guarding, and no masses palpated. Bowel Sounds normal. MUSCULOSKELETAL: Good range of motion of all major joints. Extremities without clubbing, cyanosis or edema. NEUROLOGIC EXAM: Alert and oriented x 3 No focal sensory or strength deficits. Speech normal. Follows commands. PSYCHIATRIC: Mood normal. SKIN: detial exam as documented in skin assessment - Constitutional Vitals: Temp Pulse Resp BP Pulse Ox 98.6 F 90 12 170/108 99 10/01/19 13:22 10/01/19 13:22 10/01/19 13:22 10/01/19 13:22 10/01/19 13:22 General appearance: Present: no acute distress Results - Labs CBC & Chem 7: 10/01/19 10:47 09/30/19 08:58 Labs: Laboratory Last Values WBC 4.5 K/mm3 (4.5-11.0) 10/01/19 10:47 RBC 4.34 M/mm3 (3.65-5.03) 10/01/19 10:47 Hgb 8.8 gm/dl (10.1-14.3) L 10/01/19 10:47 Hct 28.4 % (30.3-42.9) L 10/01/19 10:47 MCV 65 fl (79-97) L 10/01/19 10:47 MCH 20 pg (28-32) L 10/01/19 10:47 MCHC 31 % (30-34) 10/01/19 10:47 RDW 17.7 % (13.2-15.2) H 10/01/19 10:47 Plt Count 367 K/mm3 (140-440) 10/01/19 10:47 Lymph % (Auto) 29.4 % (13.4-35.0) 10/01/19 10:47 [place] % (Auto) 7.8 % (0.0-7.3) H 10/01/19 10:47 Eos % (Auto) 0.5 % (0.0-4.3) 10/01/19 10:47 Baso % (Auto) 0.3 % (0.0-1.8) 10/01/19 10:47 Lymph # 1.3 K/mm3 (1.2-5.4) 10/01/19 10:47 [place] # 0.4 K/mm3 (0.0-0.8) 10/01/19 10:47 Eos # 0.0 K/mm3 (0.0-0.4) 10/01/19 10:47 Baso # 0.0 K/mm3 (0.0-0.1) 10/01/19 10:47 Seg Neutrophils % 62.0 % (40.0-70.0) 10/01/19 10:47 Seg Neutrophils # 2.8 K/mm3 (1.8-7.7) 10/01/19 10:47 ESR 46 mm/Hr (0-20) 09/30/19 08:58 PT 13.2 Sec. (12.2-14.9) 09/30/19 08:58 INR 0.99 (0.87-1.13) 09/30/19 08:58 APTT 26.7 Sec. (24.2-36.6) 09/30/19 08:58 D-Dimer 244.14 ng/mlDDU (0-234) H 09/30/19 08:58 Sodium 137 mmol/L (137-145) 09/30/19 08:58 Potassium 4.1 mmol/L (3.6-5.0) 09/30/19 08:58 Chloride 100.8 mmol/L (98-107) 09/30/19 08:58 Carbon Dioxide 18 mmol/L (22-30) L D 09/30/19 08:58 Anion Gap 22 mmol/L 09/30/19 08:58 BUN 13 mg/dL (7-17) 09/30/19 08:58 Creatinine 0.8 mg/dL (0.7-1.2) 09/30/19 08:58 Estimated GFR > 60 ml/min 09/30/19 08:58 BUN/Creatinine Ratio 16 % 09/30/19 08:58 Glucose 79 mg/dL (65-100) 09/30/19 08:58 Calcium 9.2 mg/dL (8.4-10.2) 09/30/19 08:58 Total Bilirubin 0.40 mg/dL (0.1-1.2) 09/30/19 08:58 Direct Bilirubin < 0.2 mg/dL (0-0.2) 09/30/19 08:58 AST 15 units/L (5-40) 09/30/19 08:58 ALT 9 units/L (7-56) 09/30/19 08:58 Alkaline Phosphatase 67 units/L (35-129) 09/30/19 08:58 Total Creatine Kinase 86 units/L (30-135) 09/30/19 17:10 CK-MB (CK-2) < 1.0 ng/mL (0.0-4.0) 09/30/19 17:10 CK-MB (CK-2) Rel Index 1.1 (0-4) 09/30/19 17:10 Troponin T < 0.010 ng/mL (0.00-0.029) 09/30/19 14:36 C-Reactive Protein 0.20 mg/dL (0.00-1.30) 09/30/19 08:58 Total Protein 7.6 g/dL (6.3-8.2) 09/30/19 08:58 Albumin 4.4 g/dL (3.9-5) 09/30/19 08:58 Albumin/Globulin Ratio 1.4 % 09/30/19 08:58 Triglycerides 51 mg/dL (2-149) 09/30/19 08:58 Cholesterol 214 mg/dL (50-199) H 09/30/19 08:58 LDL Cholesterol Direct 140 mg/dL (50-130) H 09/30/19 08:58 HDL Cholesterol 76 mg/dL (40-59) H 09/30/19 08:58 Cholesterol/HDL Ratio 2.81 % 09/30/19 08:58 HCG, Qual Negative (Negative) 09/29/19 23:54 Active Medications - Current Medications Current Medications: Generic Name Dose Route Start Last Admin Trade Name Freq PRN Reason Stop Dose Admin Acetaminophen 650 mg 09/30/19 09:15 Tylenol PO Q4H PRN Pain MILD(1-3)/Fever >100.5/CARVAJAL Albuterol 2.5 mg 09/30/19 09:15 Proventil IH Q3HRT PRN Shortness Of Breath Aspirin 81 mg 10/01/19 10:00 Baby Aspirin PO QDAY YASSINE Atorvastatin Calcium 20 mg 09/30/19 22:00 09/30/19 21:56 Lipitor PO 20 mg QHS YASSINE Administration Clonidine HCl 0.1 mg 10/01/19 10:00 10/01/19 12:30 Catapres-Tts Patch TD 0.1 mg Mo@1000 YASSINE Administration Cyclobenzaprine HCl 5 mg 09/30/19 09:19 09/30/19 10:36 Flexeril PO 5 mg Q8H PRN Administration Muscle Spasm Diphenhydramine HCl 25 mg 09/30/19 15:43 09/30/19 23:52 Benadryl PO 25 mg Q6H PRN Administration Itching Hydralazine HCl 10 mg 10/01/19 02:00 10/01/19 00:50 Apresoline IV 10 mg Q4H PRN Administration hypertension Hydrochlorothiazide 25 mg 09/30/19 10:00 09/30/19 10:35 Hctz PO 25 mg QDAY YASSINE Administration Hydromorphone HCl 0.5 mg 09/30/19 13:43 10/01/19 08:46 Dilaudid IV 0.5 mg Q3H PRN Administration Pain , Severe (7-10) Dextrose/Sodium Chloride 1,000 mls @ 42 mls/hr 09/30/19 10:00 09/30/19 22:25 D5ns IV 100 mls/hr DIRECT YASSINE Administration Sodium Chloride 1,000 mls @ 50 mls/hr 10/01/19 12:00 10/01/19 13:28 Nacl 0.9% 1000 Ml IV 10/02/19 11:59 50 mls/hr DIRECT YASSINE Administration Naloxone HCl 0.1 mg 09/30/19 09:15 Naloxone IV Q2MIN PRN Res Rate </= 8 or 02 SAT < 92% Nitroglycerin 0.4 mg 09/30/19 09:15 Nitrostat SL Q5M PRN Chest Pain Ondansetron HCl 4 mg 09/30/19 09:15 10/01/19 12:10 Zofran IV 4 mg Q4H PRN Administration Nausea And Vomiting Pantoprazole Sodium 40 mg 10/01/19 12:00 10/01/19 12:31 Protonix IV 40 mg QDAY YASSINE Administration Sodium Chloride 10 ml 09/30/19 10:00 10/01/19 12:31 Sodium Chloride Flush Syringe 10 Ml IV 10 ml BID YASSINE Administration Sodium Chloride 10 ml 09/30/19 09:15 Sodium Chloride Flush Syringe 10 Ml IV PRN PRN LINE FLUSH Sodium Chloride 10 ml 09/30/19 09:15 Sodium Chloride Flush Syringe 10 Ml IV PRN PRN LINE FLUSH Sumatriptan Succinate 25 mg 09/30/19 09:19 Imitrex PO Q2H PRN Headache Verapamil HCl 40 mg 09/30/19 14:00 10/01/19 05:33 Calan PO 40 mg Q8HR YASSINE Administration
[2019-10-01] MEDS ORDERED: KETOROLAC 30 MG/1 ML INJ ONE (15:39)
[2019-10-01] MEDS ORDERED: ONDANSETRON 4 MG/2 ML INJ ONE (15:40)
--- NOTE | 2019-10-01 16:37 | Operative Report ---
PROCEDURE: Upper endoscopy. PREOPERATIVE DIAGNOSES: Nausea, vomiting and anemia. POSTOPERATIVE DIAGNOSIS: Mild antral gastritis. SEDATION: MAC by Anesthesia. 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 She gives a history of using [employer] approximately 3 times a week for years. She has anemia with a hemoglobin of 8.8 and an MCV of 65. This is the first time she has had vomiting and it has now resolved with treatment of her headache. She denies abdominal pain. DESCRIPTION OF PROCEDURE: Indications, risks, and benefits were explained and consent was obtained. The patient was placed in left lateral decubitus position and sedated. Video upper endoscope was passed through the mouth and oropharynx into the descending duodenum. Scope was then gradually withdrawn with close inspection of mucosa. FINDINGS: 1. Normal appearing esophagus with sharp Z-line located at 40 cm from the incisors. 2. Mild patchy antral erythema. 3. Otherwise, normal stomach. 4. Normal appearing duodenal bulb and duodenum. The patient tolerated the procedure well without immediate complications. IMPRESSION: 1. Mild antral gastritis. 2. Otherwise, normal upper endoscopy. 3. No indication of a cause for nausea and vomiting in stomach and no clear indication for source of iron deficiency anemia. PLAN: 1. Advance diet as tolerated and may discharge when tolerates well. 2. Minimize [employer]. 3. Follow up as an outpatient in approximately 1 month to monitor anemia and to check H. pylori antibody. JOB# [id number] HRC/NTS
--- NOTE | 2019-10-01 17:29 | Cat Scan Report ---
CT angio chest INDICATION / CLINICAL INFORMATION: Chest pain. Shortness of breath.. TECHNIQUE: Axial CT images were obtained after injection of Omnipaque 350, 100 cc IV contrast using CTA protocol . 3 plane MIP / 3D reconstructions were produced. All CT scans at this location are performed using C T dose reduction for ALARA by means of automated exposure control. COMPARISON: None available. FINDINGS: The lungs contain no mass, infiltrate or pleural fluid. Negative for mediastinal mass or adenopathy. Imaging of the upper abdomen is unremarkable. No aneurysm, dissection or pulmonary embolus. 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 This is typically incident al. IMPRESSION: Negative for pulmonary embolus or pneumonia. Signer Name: Seun Correa MD Signed: 10/01/2019 5:25 PM Workstation Name: [id number]
[2019-10-01 17:56] LABS: Amphetamine Screen,Urine PRESUMPTIVE NEGATIVE; Benzodiazepines Screen,Urine PRESUMPTIVE NEGATIVE; Cocaine Screen,Urine PRESUMPTIVE NEGATIVE; Methadone Screen,Urine PRESUMPTIVE NEGATIVE; Opiate Screen,Urine PRESUMPTIVE NEGATIVE
--- NOTE | 2019-10-01 18:04 | Ultrasound Report ---
ULTRASOUND ABDOMEN, COMPLETE INDICATION / CLINICAL INFORMATION: N/V. COMPARISON: No relevant prior imaging study available. FINDINGS: PANCREAS: No significant abnormality. ABDOMINAL AORTA: No significant abnormality. IVC: No significant abnormality.. LIVER: The liver measures 13 cm in length. No significant abnormality. Normal hepatopedal blood flow in the main portal vein. GALLBLADDER: No significant abnormality. BILE DUCTS: No significant abnormality. Common bile duct measures 1 mm. KIDNEYS: Right: 9.5 cm in length. No significant abnormality Left: 10.7 cm in length. No signifi cant abnormality SPLEEN: No significant abnormality. FREE FLUID: None. ADDITIONAL FINDINGS: None. IMPRESSION: 1. No sonographic abnormality of the abdomen. Signer Name: Mery Meléndez MD Signed: 10/01/2019 6:00 PM Workstation Name: [email or web address]
[2019-10-01] MEDS: hydroCHLOROthiazide 25 MG TAB PO SCH (18:30)
[2019-10-01] MEDS: ASPIRIN 81 MG TAB CHEW PO SCH (18:31)
[2019-10-01] MEDS: NIFEdipine XL 60 MG TAB PO SCH (18:32)
[2019-10-01 18:37] LABS: Cannabinoid Screen,Urine PRESUMPTIVE POSITIVE
--- NOTE | 2019-10-01 21:10 | Post Anesthesia Evaluation ---
- Post Anesthesia Evaluation Patient Participated: Yes Airway Patent: Yes Stable Respiratory Function: Yes Nausea/Vomiting: No Temp > 96.8F: Yes Pain Manageable: Yes Adequeate Hydration: Yes Anesthesia Complications: No Block Receding Appropriately: Not Applicable Patient on Ventilator: No
[2019-10-02] MEDS: HYDROmorphone 1 MG/1 ML INJ IV PRN ×4 (00:48→13:11)
[2019-10-02] MEDS: CYCLOBENZAPRINE 10 MG TAB PO PRN ×2 (00:49→13:12)
[2019-10-02] MEDS: VERAPAMIL 80 MG TAB PO SCH ×2 (05:25→14:29)
[2019-10-02] MEDS: ONDANSETRON 4 MG/2 ML INJ IV PRN ×2 (05:27→13:12)
[2019-10-02] MEDS: SODIUM CHLORIDE 0.9% 1000 ML 1,000 ML IV SCH (05:50)
[2019-10-02] MEDS: D5W/0.9% NACL 1,000 ML IV SCH (05:55)
[2019-10-02] MEDS ORDERED: REGADENOSON 0.4 MG/5 ML INJ IV ONE (08:48)
--- NOTE | 2019-10-02 09:35 | Progress Note ---
<GARY ROBERSON - Last Filed: 10/02/19 11:00> Assessment and Plan Atypical chest pain Headaches Anemia Hypertension An echocardiogram shows a normal left ventricular systolic function. Patient initially declined a stress thallium test but she has since rescinded this decision and wants to reschedule for tomorrow. We will keep NPO for thallium stress test tomorrow. Subjective Date of service: 10/02/19 Interval history: Patient declines noninvasive cardiac workup with a stress thallium test today. Wants to reschedule for tomorrow. Objective Vital Signs Temp Pulse Resp Resp BP Pulse Ox 10/02/19 05:57 17 10/02/19 05:27 18 10/02/19 05:25 85 142/86 10/02/19 05:23 98.2 F 89 18 142/86 100 10/02/19 01:18 18 10/02/19 00:48 17 10/01/19 23:01 97.4 F L 72 18 136/86 99 10/01/19 22:09 18 10/01/19 22:00 18 10/01/19 21:40 79 151/96 10/01/19 21:39 18 10/01/19 21:38 151/96 10/01/19 20:00 18 96 10/01/19 17:50 98.4 F 81 18 142/92 99 10/01/19 15:55 156/92 10/01/19 15:50 79 12 143/94 100 10/01/19 15:47 90 12 152/88 100 10/01/19 15:35 87 16 170/104 100 10/01/19 15:20 98.4 F 89 16 171/107 100 10/01/19 13:22 98.6 F 90 12 170/108 99 10/01/19 13:20 98.6 F 90 12 170/108 99 10/01/19 12:30 82 169/106 10/01/19 12:25 98.6 F 90 20 169/106 100 - Physical Examination General: No Apparent Distress HEENT: Positive: PERRL Neck: Positive: trachea midline Cardiac: Positive: Reg Rate and Rhythm Lungs: Positive: Normal Breath Sounds Neuro: Positive: Grossly Intact Extremities: Absent: edema - Labs and Meds CBC 10/01/19 Range/Units 10:47 WBC 4.5 (4.5-11.0) K/mm3 RBC 4.34 (3.65-5.03) M/mm3 Hgb 8.8 L (10.1-14.3) gm/dl Hct 28.4 L (30.3-42.9) % Plt Count 367 (140-440) K/mm3 Lymph # 1.3 (1.2-5.4) K/mm3 [place] # 0.4 (0.0-0.8) K/mm3 Eos # 0.0 (0.0-0.4) K/mm3 Baso # 0.0 (0.0-0.1) K/mm3 <JULIO CESAR PELAYO - Last Filed: 10/03/19 10:25> Assessment and Plan Has seen and evaluated the patient and agree with the assessment and plan. Patient initially declined a stress test, but after further discussion patient is now agreeable. We'll plan for stress test tomorrow. Objective Vital Signs Temp Pulse Resp BP Pulse Ox 10/02/19 11:51 98.1 F 93 H 19 156/98 100
[2019-10-02] MEDS: PANTOPRAZOLE 40 MG INJ IV SCH (10:16)
[2019-10-02] MEDS: NIFEdipine XL 60 MG TAB PO SCH (10:16)
[2019-10-02] MEDS: hydroCHLOROthiazide 25 MG TAB PO SCH (10:16)
[2019-10-02] MEDS: ASPIRIN 81 MG TAB CHEW PO SCH (10:16)
[2019-10-02 10:31] LABS: Iron 51 ug/dL (37-170); Total Iron Binding Capacity 460 mcg/dL (250-450)
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
[2019-10-02 13:25] VITALS: BP 156/98
--- NOTE | 2019-10-02 13:38 | Progress Note ---
Assessment and Plan Assessment and plan: Patient is a 39-year-old woman with history of tobacco dependency who presented with Chest pains and headaches. * Chest x-ray, CTA head and neck, CTA neck: All negative with no acute pathology noted Atypical Chest pain: refused stress test and really doesn't want it after speaking with Cardiology this morning, I notified Cardiology nurse Headaches most likely Migraine headache related. Hypertensive Urgency in ED with systolic >180 Persistent Nausea and vomiting associated with the headache Tobacco dependency: counseling done History Interval history: Patient was seen and examined. Follow-up on current diagnosis. Overnight uneventful as no events directly reported to me. Patient denies any chest pain today, shortness breath, nausea/vomiting. Imaging, nursing note, chart, labs and old chart reviewed. Discussed with patient. Hospitalist Physical - Physical exam Narrative exam: Gen: WDWN, NAD, Awake, Alert, Orientated HEENT: NCAT, EOMI, PERRL, OP Clear Neck: supple, no adenopathy, no thyromegaly, no JVD CVS/Heart: RRR, normal S1S2, pulses present bilaterally Chest/Lungs: CTA B, Symmetrical chest expansion, good air entry bilaterally GI/Abdomen: soft, NTND, good bowel sounds, no guarding or rebound /Bladder: no suprapubic tenderness, no CVA or paraspinal tenderness Extermity/Skin: no c/c/e, no obvious rash MSK: FROM x 4 Neuro: CN 2-12 grossly intact, no new focal deficits Psych: calm - Constitutional Vitals: Temp Pulse Resp BP Pulse Ox 98.1 F 93 H 19 156/98 100 10/02/19 11:51 10/02/19 11:51 10/02/19 11:51 10/02/19 11:51 10/02/19 11:51 General appearance: Present: no acute distress JOSHUA score - Joshua Score Age > 65: (0) No Aspirin use within the Past 7 Days: (0) No 3 or more CAD Risk Factors: (0) No 2 or more Angina events in past 24 hrs: (0) No Known CAD with more than 50% Stenosis: (0) No Elevated Cardiac Markers: (0) No ST Deviation Greater than 0.5mm: (0) No JOSHUA Score: 0 Results - Labs CBC & Chem 7: 10/01/19 10:47 09/30/19 08:58 Labs: Laboratory Last Values WBC 4.5 K/mm3 (4.5-11.0) 10/01/19 10:47 RBC 4.34 M/mm3 (3.65-5.03) 10/01/19 10:47 Hgb 8.8 gm/dl (10.1-14.3) L 10/01/19 10:47 Hct 28.4 % (30.3-42.9) L 10/01/19 10:47 MCV 65 fl (79-97) L 10/01/19 10:47 MCH 20 pg (28-32) L 10/01/19 10:47 MCHC 31 % (30-34) 10/01/19 10:47 RDW 17.7 % (13.2-15.2) H 10/01/19 10:47 Plt Count 367 K/mm3 (140-440) 10/01/19 10:47 Lymph % (Auto) 29.4 % (13.4-35.0) 10/01/19 10:47 [place] % (Auto) 7.8 % (0.0-7.3) H 10/01/19 10:47 Eos % (Auto) 0.5 % (0.0-4.3) 10/01/19 10:47 Baso % (Auto) 0.3 % (0.0-1.8) 10/01/19 10:47 Lymph # 1.3 K/mm3 (1.2-5.4) 10/01/19 10:47 [place]umas # 0.4 K/mm3 (0.0-0.8) 10/01/19 10:47 Eos # 0.0 K/mm3 (0.0-0.4) 10/01/19 10:47 Baso # 0.0 K/mm3 (0.0-0.1) 10/01/19 10:47 Seg Neutrophils % 62.0 % (40.0-70.0) 10/01/19 10:47 Seg Neutrophils # 2.8 K/mm3 (1.8-7.7) 10/01/19 10:47 ESR 46 mm/Hr (0-20) 09/30/19 08:58 PT 13.2 Sec. (12.2-14.9) 09/30/19 08:58 INR 0.99 (0.87-1.13) 09/30/19 08:58 APTT 26.7 Sec. (24.2-36.6) 09/30/19 08:58 D-Dimer 244.14 ng/mlDDU (0-234) H 09/30/19 08:58 Sodium 137 mmol/L (137-145) 09/30/19 08:58 Potassium 4.1 mmol/L (3.6-5.0) 09/30/19 08:58 Chloride 100.8 mmol/L (98-107) 09/30/19 08:58 Carbon Dioxide 18 mmol/L (22-30) L D 09/30/19 08:58 Anion Gap 22 mmol/L 09/30/19 08:58 BUN 13 mg/dL (7-17) 09/30/19 08:58 Creatinine 0.8 mg/dL (0.7-1.2) 09/30/19 08:58 Estimated GFR > 60 ml/min 09/30/19 08:58 BUN/Creatinine Ratio 16 % 09/30/19 08:58 Glucose 79 mg/dL (65-100) 09/30/19 08:58 Calcium 9.2 mg/dL (8.4-10.2) 09/30/19 08:58 Iron 51 ug/dL (37-170) 10/02/19 08:40 TIBC 460 mcg/dL (250-450) H 10/02/19 08:40 Ferritin 11.9 ng/mL (13.0-400.0) L 10/02/19 08:40 Total Bilirubin 0.40 mg/dL (0.1-1.2) 09/30/19 08:58 Direct Bilirubin < 0.2 mg/dL (0-0.2) 09/30/19 08:58 AST 15 units/L (5-40) 09/30/19 08:58 ALT 9 units/L (7-56) 09/30/19 08:58 Alkaline Phosphatase 67 units/L (35-129) 09/30/19 08:58 Total Creatine Kinase 86 units/L (30-135) 09/30/19 17:10 CK-MB (CK-2) < 1.0 ng/mL (0.0-4.0) 01/12/20 17:10 CK-MB (CK-2) Rel Index 1.1 (0-4) 09/30/19 17:10 Troponin T < 0.010 ng/mL (0.00-0.029) 09/30/19 14:36 C-Reactive Protein 0.20 mg/dL (0.00-1.30) 09/30/19 08:58 Total Protein 7.6 g/dL (6.3-8.2) 09/30/19 08:58 Albumin 4.4 g/dL (3.9-5) 09/30/19 08:58 Albumin/Globulin Ratio 1.4 % 09/30/19 08:58 Triglycerides 51 mg/dL (2-149) 09/30/19 08:58 Cholesterol 214 mg/dL (50-199) H 09/30/19 08:58 LDL Cholesterol Direct 140 mg/dL (50-130) H 09/30/19 08:58 HDL Cholesterol 76 mg/dL (40-59) H 09/30/19 08:58 Cholesterol/HDL Ratio 2.81 % 09/30/19 08:58 HCG, Qual Negative (Negative) 09/29/19 23:54 Urine Opiates Screen Presumptive negative 09/30/19 12:50 Urine Methadone Screen Presumptive negative 09/30/19 12:50 Ur Barbiturates Screen Presumptive negative 09/30/19 12:50 Ur Phencyclidine Scrn Presumptive negative 09/30/19 12:50 Ur Amphetamines Screen Presumptive negative 09/30/19 12:50 U Benzodiazepines Scrn Presumptive negative 09/30/19 12:50 Urine Cocaine Screen Presumptive negative 09/30/19 12:50 U Marijuana (THC) Screen Presumptive positive 09/30/19 12:50 Drugs of Abuse Note Disclamer 09/30/19 12:50 Active Medications - Current Medications Current Medications: Generic Name Dose Route Start Last Admin Trade Name Freq PRN Reason Stop Dose Admin Acetaminophen 650 mg 09/30/19 09:15 Tylenol PO Q4H PRN Pain MILD(1-3)/Fever >100.5/CARVAJAL Albuterol 2.5 mg 09/30/19 09:15 Proventil IH Q3HRT PRN Shortness Of Breath Aspirin 81 mg 10/01/19 10:00 10/02/19 10:16 Baby Aspirin PO 81 mg QDAY YASSINE Administration Atorvastatin Calcium 20 mg 09/30/19 22:00 10/01/19 21:40 Lipitor PO 20 mg QHS YASSINE Administration Clonidine HCl 0.1 mg 10/01/19 10:00 10/01/19 12:30 Catapres-Tts Patch TD 0.1 mg Mo@1000 YASSINE Administration Cyclobenzaprine HCl 5 mg 09/30/19 09:19 10/02/19 13:12 Flexeril PO 5 mg Q8H PRN Administration Muscle Spasm Diphenhydramine HCl 25 mg 09/30/19 15:43 09/30/19 23:52 Benadryl PO 25 mg Q6H PRN Administration Itching Hydralazine HCl 10 mg 10/01/19 02:00 10/01/19 00:50 Apresoline IV 10 mg Q4H PRN Administration hypertension Hydrochlorothiazide 25 mg 09/30/19 10:00 10/02/19 10:16 Hctz PO 25 mg QDAY YASSINE Administration Hydromorphone HCl 0.5 mg 09/30/19 13:43 10/02/19 13:11 Dilaudid IV 0.5 mg Q3H PRN Administration Pain , Severe (7-10) Dextrose/Sodium Chloride 1,000 mls @ 42 mls/hr 09/30/19 10:00 10/02/19 05:55 D5ns IV 100 mls/hr DIRECT YASSINE Administration Naloxone HCl 0.1 mg 09/30/19 09:15 Naloxone IV Q2MIN PRN Res Rate </= 8 or 02 SAT < 92% Nifedipine 60 mg 10/01/19 17:00 10/02/19 10:16 Procardia Xl PO 60 mg QDAY YASSINE Administration Nitroglycerin 0.4 mg 09/30/19 09:15 Nitrostat SL Q5M PRN Chest Pain Ondansetron HCl 4 mg 09/30/19 09:15 10/02/19 13:12 Zofran IV 4 mg Q4H PRN Administration Nausea And Vomiting Pantoprazole Sodium 40 mg 10/01/19 12:00 10/02/19 10:16 Protonix IV 40 mg QDAY YASSINE Administration Sodium Chloride 10 ml 09/30/19 10:00 10/02/19 10:17 Sodium Chloride Flush Syringe 10 Ml IV 10 ml BID YASSINE Administration Sodium Chloride 10 ml 09/30/19 09:15 10/02/19 13:12 Sodium Chloride Flush Syringe 10 Ml IV 10 ml PRN PRN Administration LINE FLUSH Sodium Chloride 10 ml 09/30/19 09:15 Sodium Chloride Flush Syringe 10 Ml IV PRN PRN LINE FLUSH Sumatriptan Succinate 25 mg 09/30/19 09:19 Imitrex PO Q2H PRN Headache Verapamil HCl 40 mg 09/30/19 14:00 10/02/19 05:25 Calan PO 40 mg Q8HR YASSINE Administration
--- NOTE | 2019-10-02 13:49 | Discharge Summary ---
Providers - Providers Date of Admission: 10/01/19 10:49 Date of discharge: 10/02/19 Attending physician: CAMRYN ZEPEDA 09/30/19 Consult to Cardiac Rehabilitation [CONS] Routine Reason For Exam: Phase I 09/30/19 09:15 Consult to Physician [CONS] Routine Comment: CLD ANS SVC TO ADV OF CONSULT @1203 Consulting Provider: CASEY SINGLETON Physician Instructions: Reason For Exam: chest pain 09/30/19 16:34 Consult to Physician [CONS] Routine Comment: Consulting Provider: KIRTI TRUJILLO Physician Instructions: Reason For Exam: MIGRAINE 10/01/19 08:16 Consult to Physician [CONS] Routine Comment: Consulting Provider: GLO AGUILAR Physician Instructions: Reason For Exam: PERSISTENT NAUSEA AND VOMITING [facility] Condition: Stable Hospital course: Patient is a 39-year-old woman with history of marijuana use who presented with Chest pains and headaches. * Chest x-ray, CTA head and neck, CTA neck: All negative with no acute pathology noted Discharge Diagnoses: Atypical Chest pain: refused stress test and really doesn't want it after speaking with Cardiology this morning, I notified Cardiology nurse Headaches most likely Migraine related. Hypertensive Urgency in ED with systolic >180 Persistent Nausea and vomiting associated with the headache Marijuana: counseling done Dyslipidemia; started Statin Disposition: TO HOME OR SELFCARE Time spent for discharge: 33 minutes Core Measure Documentation - Palliative Care Palliative Care/ Comfort Measures: Not Applicable - Core Measures Any of the following diagnoses?: none - VTE Discharge Requirements Deep Vein Thrombosis/Pulmonary Embolism Present on Admission: No Has pt received <5 days of overlap therapy or INR<2.0: No Anticoagulant overlap therapy prescribed at discharge: No Contraindication No Overlap Therapy order at DC: Not Indicated Exam - Physical Exam Narrative exam: Gen: WDWN, NAD, Awake, Alert, Orientated HEENT: NCAT, EOMI, PERRL, OP Clear Neck: supple, no adenopathy, no thyromegaly, no JVD CVS/Heart: RRR, normal S1S2, pulses present bilaterally Chest/Lungs: CTA B, Symmetrical chest expansion, good air entry bilaterally GI/Abdomen: soft, NTND, good bowel sounds, no guarding or rebound /Bladder: no suprapubic tenderness, no CVA or paraspinal tenderness Extermity/Skin: no c/c/e, no obvious rash MSK: FROM x 4 Neuro: CN 2-12 grossly intact, no new focal deficits Psych: calm - Constitutional Vitals: Temp Pulse Resp BP Pulse Ox 98.1 F 93 H 19 156/98 100 10/02/19 11:51 10/02/19 11:51 10/02/19 11:51 10/02/19 11:51 10/02/19 11:51 Plan Activity: other (no strenous activity unless cleared by Cardiology) Diet: low salt Special Instructions: record daily BP diary, smoking cessation Additional Instructions: If you change your mind about getting a Cardiac Stress Test then call Cardiology, Dr. Casey Singleton or Dr. Bazan or Dr. Santos. No stre nous activity unless Stress test is negative. Follow up with: [facility]MAN [facility] D[facility] [Primary Care Provider] - 3-5 Days CASEY SINGLETON MD [Staff Physician] - 7 Days Prescriptions: AtorvaSTATin [Lipitor] 20 mg PO QHS #30 tablet Aspirin [Aspirin BABY CHEW TAB] 81 mg PO QDAY #30 tab.chew cloNIDine-TTS PATCH [Catapres-Tts 0.1MG Patch] 0.1 mg TD Mo@1000 #4 patch Cyclobenzaprine [Flexeril 10 MG TAB] 5 mg PO Q8H PRN #15 tablet PRN Reason: Muscle Spasm hydroCHLOROthiazide [HCTZ] 25 mg PO QDAY #30 tablet SUMAtriptan succinate [Imitrex] 25 mg PO Q2H PRN #6 tablet PRN Reason: Headache Metoprolol [Lopressor TAB] 25 mg PO BID #60 tablet NIFEdipine XL [Procardia Xl] 60 mg PO QDAY #30 tablet
[2019-10-02] MEDS ORDERED: LORazepam 2 MG/ML VIAL IV SCH (16:15)
== END 2019-10-02 17:10 | disposition home or self-care (01) | DRG 392 ==
LOC: ED 22:43 → 3A 09-30 09:12 → OBSVTOIN 10-01 10:49
PROVIDERS: ADMIT Internal Medicine; ATTEND Internal Medicine
PROC: 0DJ08ZZ Inspection of Upper Intestinal Tract, Via Natural or Artificial Opening Endoscopic (ICD-10-PCS; principal; 2019-10-01)
DX: K29.70 Gastritis, unspecified, without bleeding (principal); I10 Essential (primary) hypertension; D50.9 Iron deficiency anemia, unspecified; R07.89 Other chest pain; I16.0 Hypertensive urgency; N92.0 Excessive and frequent menstruation with regular cycle; G43.909 Migraine, unspecified, not intractable, without status migrainosus; E78.5 Hyperlipidemia, unspecified
CPT/HCPCS: 36415; 70450; 70496; 70498; 71045; 71275; 74018; 76700; 80048; 80061; 80076; 80307; 81025; 82550; 82553; 82728; 83550; 84484; 84703; 85025; 85379; 85610; 85652; 85730; 86140; 93005; 93010; 93306; G0378; A9270-GY; C9113; J0360; J1170; J1200; J1650; J1885; J2270; J2405; J2704; J2765; J2785; J3010; J7030; J7042; Q0169; Q9967